=== PATIENT | female | born 1940 | race Caucasian/White ===

== ENCOUNTER → 2017-06-22 | Outpatient (CLI) | payer MEDICARE, OTHER ==
--- NOTE | 2017-06-22 09:49 | RADRPT ---
PROCEDURE: XR Knees. CLINICAL INDICATION: Bilateral knee pain. TECHNIQUE: Total of eight views. Weightbearing frontal, oblique, and lateral views of the both kn ees. Patellar views of both knees. COMPARISON: No prior study is available for comparison. FINDINGS: There is no fracture or dislocation. The soft tissues are normal. There are degenerative changes with osteophytes arising from all 3 joint compartment margins bilater ally. There is bilateral lateral joint compartment narrowing and subarticular sclerosis with valgus deformity. There is no lytic or blastic lesion. There is no radiopaque foreign body. IMPRESSION: 1. Moderate degenerative changes of both knees with bilateral valgus deformity. RPTAT: QQ .Rui Diggs MD, MD Date Time Electronically viewed and signed by .Rui Diggs MD, on 06/22/2017 09:48 .R/
--- NOTE | 2017-06-22 09:51 | RADRPT ---
PROCEDURE: XR Right hip and pelvis. CLINICAL INDICATION: Right hip pain. Pelvic pain. TECHNIQUE: Two views. Frontal pelvis and lateral right hip. COMPARISON: No prior studies are available for comparison. FINDINGS: There is no fracture or dislocation. The soft tissues are normal. There are degenerative changes of both hips with joint space narrowing and osteophytes. The sacroiliac joints are unremarkable. There is no lytic or blastic lesion. IMPRESSION: 1. Moderate degenerative changes of both hips. 2. Otherwise unremarkable images of the right hip and pelvis. RPTAT: QQ .Rui Diggs MD, Date Time Electronically viewed and signed by .Rui Diggs MD, on 06/22/2017 09:51 .R/
== END | disposition home or self-care (01) ==
LOC: HKI 08:47
PROVIDERS: ATTEND Orthopaedic Surgery
DX: M25.561 Pain in right knee (principal); M25.562 Pain in left knee; M16.0 Bilateral primary osteoarthritis of hip; M17.0 Bilateral primary osteoarthritis of knee
CPT/HCPCS: 73502; 73564; G0463

== ENCOUNTER → 2017-06-28 | Outpatient (CLI) | payer MEDICARE, OTHER ==
--- NOTE | 2017-06-29 06:24 | HKNOTE ---
DATE OF SERVICE: 06/28/2017 ADDENDUM MEDICATIONS: Synthroid daily. Cozaar 100 mg daily. 48 mg daily. PAST MEDICAL HISTORY: Hypothyroid, hypercholesterolemia, hypertension. For the rest of her history and physical, system review, etc., please see the notes of Dr. Michelle from 06/22/2017. Dictated By: Mani Garvin MD /[email or web address]/parish /Document#: [id number]
--- NOTE | 2017-06-29 08:00 | HKNOTE ---
DATE OF SERVICE: 06/28/2017 MAIN COMPLAINT: Pain in both knees. HISTORY OF MAIN COMPLAINT: The patient is a 76-year-old female, who has progressively developed pain in both knees. Pain has been present for more than a year, but became very much worse in the last several months. The left knee is much more affected than the right knee. Some days the right knee is worse. She has also had some pain in her right groin. She has tried various [id number] anti-inflammatories and analgesics. These do not give very much relief. She had a cortisone injection into each knee in November of this year, which did not help very much at all. She has also had viscosupplementation injections, the last being about 8 weeks ago. Neither of the knees lock or feel unstable, but they do have slight swelling from time to time. Her main pain is getting up from a sitting position. She does get rest pain and night pain. She takes Aleve. She has tried aspirin. She has also had physical therapy. She does get pain in the lower back for which she has also been treated with physical therapy. She can walk as much as she likes if she goes slowly once she gets up. She had difficulty going up and down stairs. Sometimes she has trouble getting to the bathroom. For the remainder of her history, physical, system review, medications, social history, etc., see the notes of Dr. Michelle dated 06/22/2017. PHYSICAL EXAMINATION: GENERAL: A delightful, fit looking and youthful 76-year-old female. The patient's gait is antalgic. VITAL SIGNS: Height 5 foot 6. Inches, weight 180 pounds, blood pressure 145/70, and temperature 98.5. EXTREMITIES: Examination of the right hip, flexion is somewhat limited to 100 degrees. External rotation 35 degrees. Internal rotation 15 degrees. Minimal pain with passive range of motion. Nontender. Examination of the left hip, range of motion, flexion is 100 degrees. External rotation 35. Internal rotation 15 degrees. There is minimal pain in the left groin at the limits of motion. Examination of the right knee, valgus alignment. Range of motion is 0-115 degrees. Moderate crepitus in the knee. Tender over the medial joint line. Pain on forced flexion of the knee. Muscle strength is normal. Examination of the left knee, alignment is normal, flexion 115 degrees, 1+ effusion. IMAGING: Plain x-rays of her knees obtained at the [facility] on 06/22/2017. X-rays of both knees have a valgus alignment with lateral compartment joint space narrowing and [id number] contact laterally and subchondral sclerosis and peripheral osteophyte formation. Moderate patellofemoral joint narrowing. Lateral translation of the patellas bilaterally. DIAGNOSES: 1. Osteoarthritis of both knees (symptomatic). 2. Bilateral hip osteoarthritis, minimally symptomatic. MANAGEMENT: The patient is advised that I agree with Dr. Michelle that she will need to have bilateral knee replacement sometime in the near future. I do not recommend bilateral simultaneous knee replacement. The operation and some of the major possible complications were discussed with a fair amount of detail. The actual operation and postoperative course were discussed with her. The patient comes in with a list of about 25 questions which were all asked and answered. She is given a copy of my booklet on knee arthritis and knee replacement surgery. She will call if and when she wishes to consider proceeding with surgery. Dictated By: Mani Garvin MD /[email or web address]/shannan /Document#: [id number]
== END | disposition home or self-care (01) ==
LOC: HKI 14:54
DX: M17.0 Bilateral primary osteoarthritis of knee (principal); M16.0 Bilateral primary osteoarthritis of hip; I10 Essential (primary) hypertension; E78.00 Pure hypercholesterolemia, unspecified
CPT/HCPCS: G0463